=== PATIENT | female | born 2000 | race Two or more races ===

== ENCOUNTER 2018-07-22 08:43 | Emergency (ER) | payer SELFPAY ==
[~2018-07-22] VITALS: Ht 165.1 cm; Wt 58.3 kg
[2018-07-22 09:17] LABS: BILIRUBIN,URINE NEGATIVE (NEG); CLARITY,URINE CLEAR; COLOR,URINE YELLOW; NITRITE,URINE NEGATIVE (NEG); PH,URINE 5.5; PROTEIN,URINE NEGATIVE (NEG-TRACE); UROBILINOGEN,URINE 0.2 mg/dL (0.2 mg/dL)
--- NOTE | 2018-07-22 09:18 | PHYS DOC ---
Adult General Chief Complaint Chief Complaint: PAIN ON URINATION [facility] HPI Patient is a 17 year old female who presents with dysuria and vaginal discharge. Patient has been having symptoms over the last several days. She endorses a prior history of frequent urinary tract infections and states these symptoms feel similar to that. The patient also however complains of vaginal discharge that is not normal. She is sexually active and is not using barrier contraception and is not currently on control. She had been on Depo- Provera injections but her last dose would have been due in April. No pelvic pain. No irregular vaginal bleeding. Her last menstrual cycle was last week. Review of Systems Review of Systems Constitutional: Denies fever Eyes: Denies change in visual acuity, redness HENT: Denies nasal congestion or sore throat Respiratory: Denies cough or shortness of breath Cardiovascular: No additional information not addressed in HPI GI: Denies abdominal pain, nausea : Denies dysuria Musculoskeletal: Denies back pain Integument: Denies rash Neurologic: Denies headache Endocrine: Denies polyuria All other systems were reviewed and found to be within normal limits, except as documented in this note. Current Medications Current Medications Current Medications Medications (Trade) Dose Ordered Sig/Андрей Start Time Stop Time Status Last Admin Dose Admin Azithromycin (Zithromax) 1,000 mg 1X ONCE 07/22/18 09:30 07/22/18 09:33 DC Ceftriaxone Sodium (Rocephin Im) 250 mg 1X ONCE 07/22/18 09:30 07/22/18 09:33 DC Metronidazole (Flagyl) 2,000 mg 1X ONCE 07/22/18 09:30 07/22/18 09:33 DC Allergies Allergies Allergies Coded Allergies Type Severity Reaction Last Updated Verified No Known Drug Allergies 07/22/18 No Physical Exam Physical Exam Constitutional: Well developed, well nourished, no acute distress, non-toxic appearance HENT: Normocephalic, atraumatic, bilateral external ears normal, oropharynx moist Neck: Normal range of motion Cardiovascular:Heart rate regular rhythm, no murmur Lungs & Thorax: Bilateral breath sounds clear to auscultation Abdomen: Bowel sounds normal, soft, no tenderness Skin: Warm, dry, no erythema, no rash Back: No tenderness, no CVA tenderness Neurologic: Alert and oriented X 3 Psychologic: Affect normal Pelvic: Normal female external genitalia. The vaginal mucosa is moist and does not appear inflamed. The cervical os is visualized and there is copious malodorous discharge present from the os and in the vaginal vault. There is no cervical motion tenderness. There are no masses and no adnexal tenderness. Current Patient Data Vital Signs Vital Signs Date Time Temp Pulse Resp B/P (MAP) Pulse Ox O2 Delivery O2 Flow Rate FiO2 07/22/18 08:45 98.8 93 14 124/84 (97) 96 Room Air 98.8 Lab Values Laboratory Tests Test 07/22/18 08:45 07/22/18 09:03 Urine Collection Type Unknown Urine Color Yellow Urine Clarity Clear Urine pH 5.5 Urine Specific [place] 1.020 Urine Protein Negative mg/dL (NEG-TRACE) Urine Glucose (UA) Negative mg/dL (NEG) Urine Ketones (Stick) Negative mg/dL (NEG) Urine Blood Negative (NEG) Urine Nitrite Negative (NEG) Urine Bilirubin Negative (NEG) Urine Urobilinogen Dipstick 0.2 mg/dL (0.2 mg/dL) Urine Leukocyte Esterase Small (NEG) Urine RBC 0 /HPF (0-2) Urine WBC 1-4 /HPF (0-4) Urine Squamous Epithelial Cells Mod /LPF Urine Bacteria Few /HPF (0-FEW) Urine Mucus Marked /LPF POC Urine HCG, Qualitative Hcg negative (Negative) Microbiology 07/22/18 Wet Prep - Final, Complete EKG EKG [] Radiology/Procedures Radiology/Procedures [] Course & Med Decision Making Course & Med Decision Making Pertinent Labs and Imaging studies reviewed. (See chart for details) 09:10: Patient is seen and examined. Her pelvic exam is documented above. The exam was accompanied by a female registered nurse. Exam is suspicious for sexually transmitted infection. Gonorrhea and chlamydia swabs are collected and sent to lab. Also, wet mount is sent. 10:00: Paced on clinical exam, the patient is treated empirically. She is given Rocephin, a supervising, and Flagyl although her wet mount did not reveal trich. Her exam is still suspicious for trichomoniasis versus gonorrhea. There were a few WBCs in the urine although the urine did not appear overtly infected. The patient will be placed on a short course of Macrobid empirically. Sexual precautions are discussed. She is advised to ensure that her partner is treated before resuming sexual intercourse. Patient verbalizes understanding of discharge instructions. Dragon Disclaimer Dragon Disclaimer This electronic medical record was generated, in whole or in part, using a voice recognition dictation system. Departure Departure Scripts Nitrofurantoin Monohyd/M-Cryst (MACROBID 100 MG CAPSULE) 100 Mg Capsule 1 CAP PO BID, #10 CAP Prov: JEROME NIEVES DO 07/22/18 JEROME NIEVES DO Jul 22, 2018 09:18
[2018-07-22 09:31] LABS: BACTERIA,URINE FEW /HPF (0-FEW); RBC,URINE 0 /HPF (0-2); SQUAMOUS EPITHELIAL CELL,UR MOD /LPF
[2018-07-22] MEDS ORDERED: NITR100C62 PO (09:53)
[2018-07-22] MEDS: metroNIDAZOLE 500 MG TABLET PO ONE (10:19)
[2018-07-22] MEDS: AZITHROMYCIN 250 MG TABLET. PO ONE (10:20)
[2018-07-22] MEDS: cefTRIAXone IM 250 MG VIAL IM ONE (10:21)
[2018-07-22 10:23] VITALS: BP 120/80
[2018-07-23 15:27] LABS: GC PROBE Positive (Negative)
== END 2018-07-22 10:40 | disposition home or self-care (01) ==
LOC: ER 08:43
DX: R30.0 Dysuria (principal); N89.8 Other specified noninflammatory disorders of vagina
CPT/HCPCS: 36415; 81001; 81025; 87491; 87591; 96372; 99284; J0696; Q0111; Q0144